=== PATIENT | female | born 1945 | race Caucasian/White ===

== ENCOUNTER → 2022-10-20 | Outpatient (CLI) | payer MEDICARE, OTHER ==
[~2022-10-20] MED LIST: Aspir 8181 MG PO; CHOL10002 PO; LOSARTAN-HCTZ1 EACH PO; Lovastatin20 MG PO; MELO7.5 PO; Mobic15 MG PO; Omeprazole20 M1 PO; PANT40 PO; VITAMIN D32000 UNIT PO
== END ==
LOC: PLD 14:31 → LAB SHORT 14:31
DX: L82.1 Other seborrheic keratosis (principal)
CPT/HCPCS: 88305

== ENCOUNTER → 2023-09-12 | Outpatient (CLI) | payer MEDICARE, OTHER | END | disposition home or self-care (01) | LOC: LAB SHORT 08:00 → PLD 08:00 | DX: L82.1 Other seborrheic keratosis (principal) | CPT/HCPCS: 88305 ==